=== PATIENT | female | born 1995 | race Caucasian/White ===

== ENCOUNTER → 2022-03-21 10:13 | Outpatient (CLI) | payer OTHER, SELFPAY ==
--- NOTE | ~2022-03-21 | US_ITS ---
EXAMINATION: US OB /maternal detail DATE: 03/21/2022 10:58 INDICATION: anatomic survey. TECHNIQUE: Real-time ultrasound of the pelvis was performed. COMPARISON: None. FINDINGS: There is a single living fetus in transverse lie. The placenta is anterior, 3.0 cm from the cervix. heart rate is 155 beats per minute (bpm). The amniotic fluid volume is subjectively normal. The following biometric data were obtained: Biparietal diameter (BPD): 4.9 cm; head circumference (HC): 18.8 cm; abdominal circumference (AC): 16 .4 cm; femur length (FL): 3.2 cm. These measurements are concordant. Estimated weight is 373 g +/- 56 g, which correlates with the 70th percentile when 08/06/22 is u sed as estimated date of delivery. As single measurements, these parameters are each equal to the following estimated gestational ages w ith ranges of +/- 2 standard deviations: BPD: 20 weeks 6 days (19 weeks 0 days - 22 weeks 4 days). HC: 21 weeks 1 days (19 weeks 4 days - 22 weeks 4 days). AC: 21 weeks 3 days (19 weeks 3 days - 23 weeks 3 days). FL: 19 weeks 6 days (18 weeks 0 days - 21 weeks 4 days). estimated gestational age based solely on measurements from this exam is 20 weeks 6 days +/- 1 weeks 3 days. The cerebral ventricles, cerebellum, cisterna magna, nuchal fold, lip, and visualized portions of the spine are normal. The heart is normal. The diaphragm, stomach, kidneys, and bladder are normal. Ther e are two umbilical arteries to yield a 3-vessel cord. The cord insertion is normal. IMPRESSION: 1. Single living fetus in transverse lie. 2. Estimated weight is 373 g +/- 56 g, which correlates with the 70th percentile when 08/06/22 is used as estimated date of delivery. 3. Normal anatomic survey. Reviewed, dictated and finalized at location A. IMPRESSION: 1. Single living fetus in transverse lie. 2. Estimated weight is 373 g +/- 56 g, which correlates with the 70th rcentile when 08/06/22 is used as estimated date of delivery. 3. Normal anatomic survey.
== END ==
PROVIDERS: PCP Physician Assistant; Visit Provider Nurse Practitioner
DX: Z36.9 Encounter for antenatal screening, unspecified (principal)
CPT/HCPCS: 76805